=== PATIENT | female | born 1965 | race Hispanic/Latino ===

== ENCOUNTER 2022-04-25 10:15 | Emergency (ER) | payer BC ==
[2022-04-25 11:03] LABS: Absolute Lymphocytes (CBC) 0.5 K/uL (0.7-4.9); Hematocrit 38.5 % (36.0-45.0); Lymphocytes % 6.3 % (15.3-44.8); MPV 8.3 fL (7.6-11.3); RBC Red Blood Cell Count 4.34 M/uL (3.86-4.86)
--- NOTE | 2022-04-25 11:35 | RAD REPORT ---
EXAM DESCRIPTION: RAD - Chest Single View - 04/25/2022 11:22 am CLINICAL HISTORY: CHEST PAIN Chest pain. COMPARISON: Chest Pa And Lat (2 Views) dated 12/01/2017; CHEST SINGLE VIEW dated 10/17/2011; CHEST PA AND LAT 2 VIEW dated 11/22/2007; CHEST PA AND LAT 2 VIEW dated 09/18/2005 FINDINGS: Portable technique limits examination quality. The lungs are grossly clear. The heart is normal in size. No displaced fractures. IMPRESSION: No acute intrathoracic process suspected.
[2022-04-25 11:41] LABS: BUN Blood Urea Nitrogen 19 mg/dL (7-18); Bicarbonate 23 mmol/L (21-32); Glomerular Filtration Rate 101 ml/min (=/>90); Glucose Level 111 mg/dL (74-106); Sodium Level 135 mmol/L (136-145)
[2022-04-25 11:43] LABS: Potassium 3.8 mmol/L (3.5-5.1); Troponin High Sensitivity < 3.0 pg/mL (<58.9)
[2022-04-25] MEDS ORDERED: MORPHINE 4 MG/ML SYR ONE (14:07)
[2022-04-25] MEDS ORDERED: ONDANSETRON 4 MG/2 ML VIAL ONE (14:07)
--- NOTE | 2022-04-25 16:22 | EDPHYS ---
Physician Documentation [facility] Name: Erlinda Hernandez Age: 56 yrs Sex: Female : 1965 Arrival Date: 04/25/2022 Time: 10:16 Bed 4 Private MD: ED Physician Dominic De Dios HPI: 04/25 11:38 This 56 yrs old Female presents to ER via EMS with complaints of Chest Pain. rn 11:38 The patient or guardian reports chest pain that is located primarily in the substernal rn area. Onset: this morning. The pain does not radiate. Associated signs and symptoms: Pertinent positives: dizziness, lightheadedness, shortness of breath, Pertinent negatives: abdominal pain, cough. The chest pain is described as aching, a pressure. Duration: The patient or guardian reports a single episode, that is still ongoing. Modifying factors: The symptoms are alleviated by nothing. the symptoms are aggravated by nothing. Severity of pain: At its worst the pain was moderate in the emergency department the pain has improved. The patient has not experienced similar symptoms in the past. The patient has not recently seen a physician. Pt reports "felt bad" this AM, with dizziness, went to work and began to feel chest pain, substernal, pressure, non-radiating, assoc with sob. No fever or chills. Reports legs "fell wobbly". No syncope. No famhx of cardiac problems at her age. Reports nausea and vomiting x 1. . Historical: - Allergies: 10:23 No Known Allergies; bp - Home Meds: 10:23 None [Active]; bp - PMHx: 10:23 Hypertensive disorder; bp - Immunization history:: Adult Immunizations up to date. - Social history:: Smoking status: Patient denies any tobacco usage or history of. - Family history:: not pertinent. - Hospitalizations: : No recent hospitalization is reported. ROS: 11:38 Constitutional: Negative for fever, chills, and weight loss, Eyes: Negative for injury, rn pain, redness, and discharge, Neck: Negative for injury, pain, and swelling, Cardiovascular: Negative for palpitations, and edema, Respiratory: Negative for shortness of breath, cough, wheezing, and pleuritic chest pain, Abdomen/GI: Negative for abdominal pain,diarrhea, and constipation, Back: Negative for injury and pain, MS/Extremity: Negative for injury and deformity, Skin: Negative for injury, rash, and discoloration, Neuro: Negative for headache, weakness, numbness, tingling, and seizure. Exam: 11:38 Constitutional: This is a well developed, well nourished patient who is awake, alert, rn and in no acute distress. Head/Face: Normocephalic, atraumatic. Eyes: Pupils equal round and reactive to light, extra-ocular motions intact. Lids and lashes normal. Conjunctiva and sclera are non-icteric and not injected. Cornea within normal limits. Periorbital areas with no swelling, redness, or edema. Cardiovascular: Regular rate and rhythm. No pulse deficits. Respiratory: No increased work of breathing, no retractions or nasal flaring. Abdomen/GI: Soft, non-tender Skin: Warm, dry MS/ Extremity: Pulses equal, no cyanosis. Neurovascular intact. Full, normal range of motion. Equal circumference. Neuro: Awake and alert, GCS 15 Vital Signs: 10:22 BP 120 / 84; Pulse 82; Resp 16; Temp 98.2; Pulse Ox 97% ; bp 10:42 BP 130 / 78; Pulse 84; Resp 16; Pulse Ox 97% ; bp 12:09 BP 123 / 66; Pulse 98; Resp 17; Pulse Ox 98% ; bp 13:00 BP 110 / 60; Pulse 72; Resp 16; Pulse Ox 97% ; bp 14:00 BP 114 / 70; Pulse 77; Resp 19; Pulse Ox 97% ; bp 15:00 BP 120 / 75; Pulse 77; Resp 18; Pulse Ox 95% ; bp 16:00 BP 123 / 74; Pulse 79; Resp 18; Pulse Ox 96% ; bp MDM: 10:37 Patient medically screened. rn 13:33 ED course: COVID never sent, still pending.. rn 16:20 Differential diagnosis: acute myocardial infarction, acute pericarditis, anxiety, rn coronary artery disease cholecystitis, Cholelithiasis costochondritis, esophagitis, gastritis, gastroesophageal reflux disease (GERD), pericarditis, pleurisy, pneumothorax, pulmonary embolus, stable angina. Data reviewed: vital signs, nurses notes, lab test result(s), EKG, radiologic studies, and as a result, I will discharge patient. Counseling: I had a detailed discussion with the patient and/or guardian regarding: the historical points, exam findings, and any diagnostic results supporting the discharge/admit diagnosis, lab results, radiology results, the need for outpatient follow up, to return to the emergency department if symptoms worsen or persist or if there are any questions or concerns that arise at home. Response to treatment: the patient's symptoms have markedly improved after treatment, and as a result, I will discharge patient. Special discussion: Based on the patient's history, exam, and Dx evaluation, there is no indication for emergent intervention or inpatient Tx. It is understood by the patient/guardian that if the Sx's persist or worsen they need to return immediately for re-evaluation. ED course: No acute findings in evaluation here. D-dimer neg. Trop neg x 2. No ischemia on ECG. Stable vitals. Pt wants to go home, still pending COVID result, will dc home per her wishes and call her with results. . 04/25 10:22 Order name: Basic Metabolic Panel; Complete Time: 12:03 bp 04/25 10:22 Order name: CBC with Diff; Complete Time: 11:37 bp 04/25 10:22 Order name: Troponin HS; Complete Time: 12:03 bp 04/25 10:45 Order name: SARS-COV-2 RT PCR (Document "Date of Onset" if Symptomatic); Complete Time: rn 16:25 04/25 10:45 Order name: D-Dimer; Complete Time: 15:21 rn 04/25 13:23 Order name: Troponin High Sensitivity; Complete Time: 14:26 rn 04/25 10:22 Order name: XRAY Chest (1 view); Complete Time: 11:37 bp 04/25 10:22 Order name: EKG; Complete Time: 10:22 bp 04/25 10:22 Order name: Cardiac monitoring; Complete Time: 10:42 bp 04/25 10:22 Order name: EKG - Nurse/Tech; Complete Time: 10:42 bp 04/25 10:22 Order name: IV Saline Lock; Complete Time: 10:42 bp 04/25 13:23 Order name: EKG; Complete Time: 13:24 rn 04/25 10:22 Order name: Labs collected and sent; Complete Time: 10:42 bp 04/25 10:22 Order name: O2 Per Protocol; Complete Time: 10:42 bp 04/25 10:22 Order name: O2 Sat Monitoring; Complete Time: 10:42 bp 04/25 13:23 Order name: EKG - Nurse/Tech; Complete Time: 15:45 rn Administered Medications: 14:00 Drug: morphine 4 mg Route: IVP; Infused Over: 4 mins; Site: left antecubital; bp 16:59 Follow up: Response: No adverse reaction bp 14:00 Drug: Zofran (Ondansetron) 4 mg Route: IVP; Site: left antecubital; bp 16:59 Follow up: Response: No adverse reaction bp Disposition Summary: 04/25/22 16:21 Discharge Ordered Location: Home rn Problem: new rn Symptoms: have improved rn Condition: Stable rn Diagnosis - Chest pain, unspecified rn Followup: rn - With: Private Physician - When: As needed - Reason: Recheck today's complaints, Re-evaluation by your physician Discharge Instructions: - Discharge Summary Sheet rn - Nonspecific Chest Pain, Adult rn - Pain Without a Known Cause rn Forms: - Medication Reconciliation Form rn - Thank You Letter rn - Antibiotic rn medical surgical - Prescription Opioid Use rn - Work release form eb Signatures: Dispatcher [employer] Dominic Bowen MD MD rn Peltier, Brian, RN RN bp
--- NOTE | 2022-04-25 16:22 | ER ---
Nurse's Notes [facility] Name: Erlinda Hernandez Age: 56 yrs Sex: Female : 1965 Arrival Date: 04/25/2022 Time: 10:16 Bed 4 Private MD: Diagnosis: Chest pain, unspecified Presentation: 04/25 10:22 Chief complaint: EMS states: SUBSTERNAL CHEST PAIN 04/11 SINCE 729. Coronavirus screen: bp At this time, the client does not indicate any symptoms associated with coronavirus-19. Ebola Screen: No symptoms or risks identified at this time. Initial Sepsis Screen: Does the patient meet any 2 criteria? No. Patient's initial sepsis screen is negative. Does the patient have a suspected source of infection? No. Patient's initial sepsis screen is negative. Risk Assessment: Do you want to hurt yourself or someone else? Patient reports no desire to harm self or others. Onset of symptoms was April 25, 2022 at 07:30. Care prior to arrival: Medication(s) given: ASA, 81 mg, x 4, IV initiated. 20 GA, in the right antecubital area, Glucose check: 126. 10:22 Method Of Arrival: EMS: [facility] bp 10:22 Acuity: BOBBI 3 bp Triage Assessment: 10:22 General: Appears distressed, uncomfortable, Behavior is cooperative, appropriate for bp age, anxious. Pain: Complains of pain in chest. EENT: No deficits noted. Neuro: No deficits noted. Cardiovascular: Rhythm is sinus rhythm. Respiratory: No deficits noted. GI: No signs and/or symptoms were reported involving the gastrointestinal system. : No signs and/or symptoms were reported regarding the genitourinary system. Derm: No deficits noted. Musculoskeletal: No deficits noted. Historical: - Allergies: 10:23 No Known Allergies; bp - Home Meds: 10:23 None [Active]; bp - PMHx: 10:23 Hypertensive disorder; bp - Immunization history:: Adult Immunizations up to date. - Social history:: Smoking status: Patient denies any tobacco usage or history of. - Family history:: not pertinent. - Hospitalizations: : No recent hospitalization is reported. Screenin:22 Abuse screen: Denies threats or abuse. Denies injuries from another. Nutritional bp screening: No deficits noted. Tuberculosis screening: No symptoms or risk factors identified. Fall Risk None identified. Assessment: 10:22 General: SEE TRIAGE NOTE. bp 12:10 Reassessment: No changes from previously documented assessment. Patient and/or family bp updated on plan of care and expected duration. Pain level reassessed. 14:00 Reassessment: Patient appears in no apparent distress at this time. Patient and/or bp family updated on plan of care and expected duration. Pain level reassessed. Patient states symptoms have improved. 15:00 Reassessment: No changes from previously documented assessment. Patient and/or family bp updated on plan of care and expected duration. Pain level reassessed. 16:57 Reassessment: PT D/C HOME AMBULATORY WITH FAMILY, DX WITH NONCARDIAC CHEST PAIN. bp Vital Signs: 10:22 BP 120 / 84; Pulse 82; Resp 16; Temp 98.2; Pulse Ox 97% ; bp 10:42 BP 130 / 78; Pulse 84; Resp 16; Pulse Ox 97% ; bp 12:09 BP 123 / 66; Pulse 98; Resp 17; Pulse Ox 98% ; bp 13:00 BP 110 / 60; Pulse 72; Resp 16; Pulse Ox 97% ; bp 14:00 BP 114 / 70; Pulse 77; Resp 19; Pulse Ox 97% ; bp 15:00 BP 120 / 75; Pulse 77; Resp 18; Pulse Ox 95% ; bp 16:00 BP 123 / 74; Pulse 79; Resp 18; Pulse Ox 96% ; bp ED Course: 10:16 Patient arrived in ED. cl3 10:21 Jamarcus Mendieta, [place] is Primary Nurse. bp 10:22 Dominic De Dios MD is Attending Physician. eb 10:22 Maintain EMS IV. Dressing intact. Good blood return noted. Site clean \T\ dry. Gauge \T\ bp site: 20 LEFT AC. 10:22 Arm band placed on. bp 10:22 Patient has correct armband on for positive identification. Client placed on continuous bp cardiac and pulse oximetry monitoring. NIBP monitoring applied. 10:23 Triage completed. bp 11:24 XRAY Chest (1 view) In Process Unspecified. EDMS 15:00 EKG done, by ED staff, reviewed by Dominic De Dios MD. mb7 16:57 No provider procedures requiring assistance completed. IV discontinued, intact, bp bleeding controlled, No redness/swelling at site. Pressure dressing applied. Patient maintains SpO2 saturation greater than 95% on room air. Administered Medications: 14:00 Drug: morphine 4 mg Route: IVP; Infused Over: 4 mins; Site: left antecubital; bp 16:59 Follow up: Response: No adverse reaction bp 14:00 Drug: Zofran (Ondansetron) 4 mg Route: IVP; Site: left antecubital; bp 16:59 Follow up: Response: No adverse reaction bp Medication: 15:00 VIS not applicable for this client. bp Outcome: 16:21 Discharge ordered by . rn 16:57 Discharged to home ambulatory, with family. bp 16:57 Condition: stable 16:57 Discharge instructions given to patient, Instructed on discharge instructions, follow up and referral plans. Demonstrated understanding of instructions, follow-up care. 17:00 Patient left the ED. bp Signatures: Dispatcher [employer] EDMS Dominic De Dios MD MD rn Peltier, Brian, RN RN bp Botello, Elizabeth eb Lewis, Charde 3 Heidy Cuello 7
[2022-04-25 17:16] VITALS: TEMP 98.2
[2022-04-25 17:28] VITALS: BP 123/74; O2SAT 96
--- NOTE | 2022-04-26 17:29 | EKG ---
Test Date: 2022-04-25 Test Time: 14:44:28 Party Plan Sales Director: MB MEASUREMENT RESULTS: Intervals: Rate: 77 NH: 156 QRSD: 94 QT: 382 QTc: 432 Lutz: P: 31 NH: 156 QRS: 9 T: 0 INTERPRETIVE STATEMENTS: Normal sinus rhythm Minimal voltage criteria for LVH, may be normal variant Cannot rule out Anterior infarct, age undetermined Abnormal ECG Compared to ECG 04/25/2022 10:34:17 Myocardial infarct finding now present ST (T wave) deviation no longer present Electronically Signed On 04-26-22 17:27:20 CDT by Hilario Coreas
--- NOTE | 2022-04-26 17:29 | EKG ---
Test Date: 2022-04-25 Test Time: 10:34:17 Quality Head: BP MEASUREMENT RESULTS: Intervals: Rate: 80 NV: 152 QRSD: 84 QT: 378 QTc: 435 Stanley: P: 32 NV: 152 QRS: 3 T: -3 INTERPRETIVE STATEMENTS: Normal sinus rhythm Moderate voltage criteria for LVH, may be normal variant Nonspecific ST and T wave abnormality Abnormal ECG Compared to ECG 10/17/2011 18:54:10 Left ventricular hypertrophy now present ST (T wave) deviation now present Sinus bradycardia no longer present Electronically Signed On 04-26-22 17:28:01 CDT by Hilario Coreas
== END 2022-04-25 17:00 | disposition home or self-care (01) ==
LOC: ER 10:15
DX: R07.9 Chest pain, unspecified (principal); Z20.822 Contact with and (suspected) exposure to COVID-19; I10 Essential (primary) hypertension
CPT/HCPCS: 93005 ×2; 85025; 80048; 36415; 85379; 84484 ×2; 71045; 96375; 96374; 99285; U0003; J2405

== ENCOUNTER 2025-08-03 12:01 | Emergency (ER) | payer BC ==
--- OUTSIDE RECORDS SUMMARY | 2025-08-03 12:07 | XMS REPORT | Continuity of Care Document ---
Author Name Unknown Address [address] [place] [address] [address] [place], [place] [id number] [place] [address] Address [address] [facility] 1 [address] [place] [address] Care Team Providers Care Radar Signal Processing Engineer Name Role Phone Unavailable Unavailable Unavailable Results Test Description Test Time Test Comments Results Result Co mments Source HEPATITIS A [id number] 02:47:40* Test Item Value Reference Range Interpretation Comme nts HEPATITIS A IgM (test code = 2728) NON-REACTIVE NON-REACTIVE UNLESS OTHERW ISE INDICATED, ALL TESTING PERFORMED AT [facility] [address] [place] [address] TEACHER INDUSTRIAL ARTS: JAZZMINE VERONICA M.D. CLIA NUMBER [id number] [facility] [place] [place]. [id number] PAP TEST, THINPREP, [id number] 13:51:42* Test Item Value Reference Range Interpretation Comme nts SOURCE: (test code = 8001) Cervical/Endo cervical SLIDES: (test code = 8011) 1 LMP: (test code = 8021) NOT GIVEN SPECIMEN ADEQUACY: (test code = 79003) (NOTE) Satisfactory for evaluation. Endocervical cells/transformation zone component present. INTERPRETATION: (test code = 55490) NILM/NO EPITH. ABNORMALITY;S EE BELOW ---- NEGATIVE FOR INTRAEPITHELIAL LESION OR MALIGNANCY (NILM) - OTHER COMMENTS: (test code = 8081) (NOTE) Atrophic changes present. NAVAL AIRCREWMAN OPERATOR: (test code = 8101) TANYA Joyner(ASCP) IAC LOCATION: (test code = 29199) (NOTE) Specimens proces sed and interpreted at [facility], [address] [place] [address], , CLIA: [id number] CPT: (test code = 8140) (NOTE) [address] UNLESS OTH ERWISE INDICATED, COMPUTER AIDED AND NAVAL AIRCREW[employer] OPERATOR SCREENING PERFORMED. The Pap test is a screening test with an inherent, but low probability of error. Your patient should be reminded to consult you immediately if she experiences any suspicious signs or symptoms, regardless of her Pap test result. An alternate report format containing images or consolidated prior Pap history is available as applicable. HPV HIGH RISK WITH GENOTYPE, [id number] 13:45:26* Test Item Value Reference Range Interpretation Comme nts HPV HIGH RISK INTERP (test code = 23357) NEGATIVE NEGATIVE HPV 16 (test code = 70582) NEGATIVE HPV 18 (test code = 02827) NEGATIVE HPV, HR, OTHER GENOTYPES (test code = 65111) NEGATIVE Testing methodol ogy is real-time PCR utilizing hydrolysis probes with the Sne[employer] Carol Ann 4800 system. The test individually detects genotypes 16 and 18, as well as the other 12 high risk types (31,33,35,39,45,51,52,56 ,58,59,66,68). The expected result is negative. A negative result does not rule out the presence of HPV not included in the genotype set, a low level of infection or specimen sampling error. UNLESS OTHERWISE INDICATED, ALL TESTING PERFORMED AT [facility] [address] [place] [address] TEACHER [employer]USTRIAL [employer]S: JAZZMINE VERONICA M.D. CLIA NUMBER [id number] [facility] [place] [place]. [id number] LIPID [id number] 04:45:16* Test Item Value Reference Range Interpretation Comme nts CHOLESTEROL (test code = 2210) 299 MG/DL <200 H TRIGLYCERIDES (test code = 2232) 185 MG/DL <150 H HDL CHOLESTEROL (test code = 2219) 90 MG/DL >39 CALC LDL CHOL (test code = 2236) 175 MG/DL <100 H NOTE: CALCULATED LDL IS BASED ON TREY-LARRY METHOD WHICHINCLUDES ADJUSTABLE TRIGLYCERIDE:VLDL CHOLESTEROL RATIO.THIS FACTOR VARIES BY MEASURED TRIGLYCERIDE AND NON-HDLCHOLESTEROL CONCENTRATIONS WITH INCREASED CALCULATED LDL SEENIN HIGHER TRIGLYCERIDE OR LOWER NON-HDL SPECIMENS. FOR MOREINFORMATION, SEE CLIENT ANNOUNCEMENT AT [email or web address] [email or web address] RATIO LDL/HDL (test code = 2237) 1.94 RATIO <3.22 COMPREHENSIVE METABOLIC [id number] 04:45:16* Test Item Value Reference Range Interpretation Comme nts GLUCOSE (test code = 2216) 119 MG/DL 70-99 H BUN (test code = 2207) 20 MG/DL 8-23 CREATININE (test code = 221) 0.62 MG/DL 0.60-1.30 eGFR (2020 CKD-EPI) (test code = 18510) 102 ML/MIN/1.73 >60 CALC BUN/CREAT (test code = 2235) 32 RATIO 6-28 H SODIUM (test code = 223) 141 MEQ/L 133-146 POTASSIUM (test code = 2228) 4.3 MEQ/L 3.5-5.4 CHLORIDE (test code = 2215) 103 MEQ/L 95-107 CARBON DIOXIDE (test code = 2206) 24 MEQ/L 19-31 CALCIUM (test code = 220) 9.9 MG/DL 8.5-10.5 PROTEIN, TOTAL (test code = 2228) 7.6 G/DL 6.1-8.3 ALBUMIN (test code = 2200) 5.1 G/DL 3.5-5.2 CALC GLOBULIN (test code = 2240) 2.5 G/DL 1.9-3.7 CALC A/G RATIO (test code = 2233) 2.0 RATIO 1.0-2.6 BILIRUBIN, TOTAL (test code = 2206) 0.5 MG/DL See_Comment [Automated me ssage] The system which generated this result transmitted reference range: <=1.2. The reference range was not used to interpret this result as normal/abnormal. ALKALINE PHOSPHATASE (test code = 2203) 67 U/L 40-136 AST (test code = 2218) 17 U/L 9-40 ALT (test code = 2219) 18 U/L 5-40 UNLESS OTHERWISE INDICATED, ALL TESTING PERFORMED AT [facility] [address] [place] [address] TEACHER INDUSTRIAL ARTS: JAZZMINE VERONICA M.D. CLIA NUMBER [id number] [place]. [id number] HEMOGLOBIN [id number] 03:48:11* Test Item Value Reference Range Interpretation Comme nts HEMOGLOBIN A1c (test code = 88468) 6.1 % 4.2-5.6 H [employer] GUIDELINES FOR HGB A1C: PREDIABETES/INCREASED RISK . . . . . . . 5.7-6.4% DIAGNOSIS OF DIABETES . . . . . . . . . >=6.5% WITH CONFIRMATION OR APPROPRIATE SYMPTOMS NOTE: ASSAY MAY BE AFFECTED BY HEMOGLOBINOPATHIES (SICKLE CELL ANEMIA, S-C DISEASE, OTHERS) OR ARTIFICIALLY LOWERED BY DECREASED RED CELL SURVIVAL (HEMOLYTIC ANEMIAS, BLOOD LOSS, ETC.). CONSIDER ALTERNATE TESTING OR LABORATORY CONSULTATION. OCCULT BLD,FECAL,IMMUNOASSAY [id number] 14:20:35* Test Item Value Reference Range Interpretation Comme nts OCCULT BLD, FECAL (test code = 71217) NEGATIVE NEGATIVE [facility] has important pathology staff changes effective 12/31/2022. New pathology staff will provide uninterrupted, excellent patient care and clinical consultation. See URL: [email or web address]. UNLESS OTHERWISE INDICATED, ALL TESTING PERFORMED AT [facility] [address] [place] [address] TEACHER INDUSTRIAL ARTS: LARISA MELENDEZ M.D. CLIA NUMBER [id number] [place] [id number] COMPREHENSIVE METABOLIC [id number] 04:19:21* Test Item Value Reference Range Interpretation Comme nts GLUCOSE (test code = 2217) 99 MG/DL 70-99 BUN (test code = 2208) 18 MG/DL 6-20 CREATININE (test code = 2214) 0.63 MG/DL 0.60-1.30 eGFR (2020 CKD-EPI) (test code = 38198) 102 ML/MIN/1.73 >60 CALC BUN/CREAT (test code = 2235) 29 RATIO 6-28 H SODIUM (test code = 2231) 140 MEQ/L 133-146 POTASSIUM (test code = 2227) 4.1 MEQ/L 3.5-5.4 CHLORIDE (test code = 5) 103 MEQ/L 95-107 CARBON DIOXIDE (test code = 2205) 21 MEQ/L 19-31 CALCIUM (test code = 2208) 9.9 MG/DL 8.5-10.5 PROTEIN, TOTAL (test code = 2228) 7.3 G/DL 6.1-8.3 ALBUMIN (test code = 2200) 4.9 G/DL 3.5-5.2 CALC GLOBULIN (test code = 2239) 2.4 G/DL 1.9-3.7 CALC A/G RATIO (test code = 2233) 2.0 RATIO 1.0-2.6 BILIRUBIN, TOTAL (test code = 2206) 0.4 MG/DL See_Comment [Automated me ssage] The system which generated this result transmitted reference range: <=1.2. The reference range was not used to interpret this result as normal/abnormal. ALKALINE PHOSPHATASE (test code = 2203) 66 U/L 40-136 AST (test code = 2217) 20 U/L 9-40 ALT (test code = 2218) 14 U/L 5-40 LIPID [id number] 04:19:21* Test Item Value Reference Range Interpretation Comme nts CHOLESTEROL (test code = 221) 247 MG/DL <200 H TRIGLYCERIDES (test code = 2) 116 MG/DL <150 HDL CHOLESTEROL (test code = 2219) 94 MG/DL >39 CALC LDL CHOL (test code = 2236) 131 MG/DL <100 H NOTE: CALCULATED LDL IS BASED ON TREY-LARRY METHOD WHICHINCLUDES ADJUSTABLE TRIGLYCERIDE:VLDL CHOLESTEROL RATIO.THIS FACTOR VARIES BY MEASURED TRIGLYCERIDE AND NON-HDLCHOLESTEROL CONCENTRATIONS WITH INCREASED CALCULATED LDL SEENIN HIGHER TRIGLYCERIDE OR LOWER NON-HDL SPECIMENS. FOR MOREINFORMATION, SEE CLIENT ANNOUNCEMENT AT [email or web address] [email or web address] RATIO LDL/HDL (test code = 223) 1.39 RATIO <3.22 TSH, THIRD [id number] 03:38:20* Test Item Value Reference Range Interpretation Comme nts TSH, THIRD GENERATION (test code = 2821) 1.790 UIU/ML 0.400-4.100 FREE T4 (THYROXINE)2022-12-15 03:38:20* Test Item Value Reference Range Interpretation Comme nts FREE T4 (THYROXINE) (test code = 2823) 1.29 NG/DL 0.80-1.90 [facility] has i mportant pathology staff changes effective 12/31/2022. New pathology staff will provide uninterrupted, excellent patient care and clinical consultation. See URL: [email or web address]. UNLESS OTHERWISE INDICATED, ALL TESTING PERFORMED AT [facility] [address] [place] [address] CLIA: [id number], CAP: [id number] HEMOGLOBIN [id number] 03:37:17* Test Item Value Reference Range Interpretation Comme nts HEMOGLOBIN A1c (test code = 52837) 6.0 % 4.2-5.6 H CBC W/AUTO DIFF WITH [id number] 03:23:10* Test Item Value Reference Range Interpretation Comme nts WBC (test code = 1001) 3.9 K/UL 3.5-11.0 RBC (test code = 1002) 4.61 M/UL 3.80-5.40 HEMOGLOBIN (test code = 1003) 13.4 G/DL 11.5-15.5 HEMATOCRIT (test code = 1004) 39.7 % 34.0-45.0 MCV (test code = 1005) 86.1 fL 80.0-99.0 MCH (test code = 1006) 29.1 PG 25.0-33.0 MCHC (test code = 1007) 33.8 G/DL 31.0-36.0 RDW (test code = 1038) 13.4 % 11.5-15.0 NEUTROPHILS (test code = 1008) 45.8 % LYMPHOCYTES (test code = 1010) 39.4 % MONOCYTES (test code = 1011) 7.1 % EOSINOPHILS (test code = 1012) 6.9 % BASOPHILS (test code = 1013) 0.8 % IMMATURE GRANULOCYTES (test code = 1036) 0.0 % NUCLEATED RBCS (test code = 1065) 0.0 /100 WBC'S See_Comment [Automated Vanksena ge] The system which generated this result transmitted reference range: 0.0. The reference range was not used to interpret this result as normal/abnormal. PLATELET COUNT (test code = 1015) 342 K/UL 130-400 ABSOLUTE NEUTROPHILS (test code = 1066) 1.80 K/UL 1.50-7.50 ABSOLUTE LYMPHOCYTES (test code = 1067) 1.55 K/UL 1.00-4.00 ABSOLUTE MONOCYTES (test code = 1068) 0.28 K/UL 0.20-1.00 ABSOLUTE EOSINOPHILS (test code = 1040) 0.27 K/UL 0.00-0.50 ABSOLUTE BASOPHILS (test code = 1069) 0.03 K/UL 0.00-0.20 ABS IMMATURE GRANULOCYTES (test code = 1020) 0.00 K/UL 0.00-0.10 ABS NUCLEATED RBCS (test code = 22209) 0.00 K/UL 0.00-0.11
--- NOTE | 2025-08-03 13:02 | RAD REPORT ---
EXAMINATION: TWO VIEW CHEST XR CLINICAL INDICATION: SOB TECHNIQUE: 2 views of the chest was performed. COMPARISON: 04/25/2022 FINDINGS: The lungs are well inflated and clear. The heart is upper limit of normal in size. No displaced fract ures evident. Small hiatal hernia. IMPRESSION: No acute or significant abnormalities.
[2025-08-03 15:16] LABS: Absolute Lymphocytes (CBC) 1.6 K/uL (0.7-4.9); Hematocrit 41.0 % (36.0-45.0); Hemoglobin 13.8 g/dL (12.0-15.0); MCH 29.9 pg (27.0-35.0); MCHC 33.6 g/dL (32.0-36.0); MCV 89.1 fL (80-100); MPV 7.9 fL (7.6-11.3); Nucleated RBC Absolute Count 0.0 (0-0); Nucleated Red Blood Cells % 0.1 % (0-0); RBC Red Blood Cell Count 4.60 M/uL (3.86-4.86); White Blood Count 4.30 thou/uL (4.3-10.9)
[2025-08-03 15:31] LABS: Anion Gap 9.5 mEq/L (5.0-15.0); BUN Blood Urea Nitrogen 15.0 mg/dL (7-18); Glucose Level 106.0 mg/dL (74-106); Potassium 3.5 mEq/L (3.5-5.1)
[2025-08-03 15:41] LABS: PT Prothrombin Time 12.3 SECONDS (10-13.0); PTT, Activated Partial Thromb 35.5 SECONDS (27.2-37.4); Protime INR 1.09
--- NOTE | 2025-08-03 16:23 | RAD REPORT ---
EXAM: Soft Tissue Neck W/Contr INDICATION: possible steak impaction esophagus Sagittal and coronal reformations were generated. This exam was performed according to our department al dose-optimization program, which includes automated exposure control, adjustment of the mA and/or kV according to patient size and/or use of iterative reconstruction technique. IV contrast was administered. COMPARISON: None. FINDINGS: Mucosal spaces: Nasopharynx, oropharynx, oral cavity, larynx and hypopharynx are normal. No suspiciou s masses are identified. Epiglottis is normal in configuration. True vocal cords cords are normally situated. Piriform sinuses are well-aerated. Lymph Nodes: No gross pathologic appearing cervical lymph nodes. Salivary Glands: Unremarkable. Thyroid Gland: Normal Included Intracranial Structures: Grossly unremarkable. Included Orbits: Normal Paranasal Sinuses: Predominantly clear Tympanomastoid Cavities: Normal Vascular Structures: Normal Osseous Structures: No acute osseous abnormality. Included Lung Apices: Normal IMPRESSION: No acute or pathologic process identified.
--- NOTE | 2025-08-03 16:25 | RAD REPORT ---
EXAM: CT CHEST WITH CONTRAST CLINICAL INDICATION: foreign body sensation, difficulty swallowing TECHNIQUE: Routine CT scan of the chest with intravenous contrast. One or more of the following dose reduction techniques were used: Automated exposure control, adjustment of the mA and/or kV according to patient size, and/or iterative reconstruction. Unless otherwise specified, incidental fi ndings do not require dedicated imaging follow-up. COMPARISON: No prior exam. FINDINGS: LUNGS: Airways are clear. No evidence of airspace or interstitial process. No nodules. PLEURA: No pleural effusion. No pneumothorax. MEDIASTINUM AND LYMPH NODES: No mediastinal mass or fluid collection. Normal size mediastinal, hilar, and axillary lymph nodes. Mild esophageal thickening. OSSEOUS STRUCTURES AND CHEST WALL: Intact. UPPER ABDOMEN: No significant abnormalities. IMPRESSION: No acute intrathoracic findings. Mild thickening of the esophagus may benefit from nonemergent follow-up endoscopy.
--- NOTE | 2025-08-03 17:32 | EDPHYS ---
Physician Documentation [facility] Name: Erlinda Hernandez Age: 60 yrs Sex: Female : 1965 Arrival Date: 08/03/2025 Time: 12:01 Bed 8 Private MD: ED Physician Dominic De Dios HPI: 08/03 15:23 This 60 yrs old Female presents to ER via Ambulatory with complaints of rn Shortness Of Breath, Headache, Difficulty Swallowing. 15:23 Patient reports has difficulty swallowing for the last 2 months. Patient states rn sometimes feels like food gets stuck but eventually passes. Last night was eating steak and has been having trouble swallowing since then. Was able to sleep last night but woke up this morning with a tightness in her chest and feeling like something was stuck. Tried to drink water and water came back up. Tried to drink Gatorade just prior to triage and feels like vomiting but does not actually throw up.. Historical: - Allergies: 13:39 No Known Allergies; dd2 - PMHx: 13:39 Hypertensive disorder; dd2 - PSHx: 13:39 None; dd2 - Immunization history:: Adult Immunizations up to date. - Infectious Disease History:: Denies. - Social history:: Smoking status: Patient reports the use of cigarette tobacco products, smokes .25 packs per day. - Family history:: not pertinent. - Hospitalizations: : No recent hospitalization is reported. ROS: 15:23 Constitutional: Negative for fever, chills, and weight loss, Neck: Positive for feeling rn of something stuck in neck Cardiovascular: Negative for chest pain, palpitations, and edema, Respiratory: Negative for shortness of breath, cough, wheezing, and pleuritic chest pain, Abdomen/GI: Negative for abdominal pain, nausea, vomiting, diarrhea, and constipation, MS/Extremity: Negative for injury and deformity, Skin: Negative for injury, rash, and discoloration, Neuro: Negative for headache, weakness, numbness, tingling, and seizure, Exam: 15:23 Constitutional: This is a well developed, well nourished patient who is awake, alert, rn and in no acute distress. Cardiovascular: Regular rate and rhythm. No pulse deficits. Respiratory: No increased work of breathing, no retractions or nasal flaring. Neuro: Awake and alert, GCS 15 Vital Signs: 13:33 BP 125 / 86; Pulse 79; Resp 16; Temp 98.2; Pulse Ox 97% on R/A; Weight 72.57 kg; Pain dd2 9/10; 17:22 BP 122 / 72; Pulse 72; Resp 18; Pulse Ox 100% ; mb9 13:33 Pain Scale: Adult dd2 MDM: 12:06 Medical Screening Exam initiated rn 17:28 Differential diagnosis: Esophageal food bolus or impaction, esophagitis, stricture. rn Data reviewed: vital signs, nurses notes, lab test result(s), radiologic studies, CT scan, plain films. Independent interpretation of the following test(s) in the Emergency Department X-Ray: My interpretation is Chest x-ray images negative for pneumothorax per my interpretation. CT Scan: My interpretation is CT chest images negative for foreign body per my interpretation. Counseling: I had a detailed discussion with the patient and/or guardian regarding the historical points, exam findings, and any diagnostic results supporting the discharge/admit diagnosis, lab results, radiology results, the need for outpatient follow up, to return to the emergency department if symptoms worsen or persist or if there are any questions or concerns that arise at home. Special discussion: I discussed with the patient/guardian in detail that at this point there is no indication for admission to the hospital. It is understood, however, that if the symptoms persist or worsen the patient needs to return immediately for re-evaluation. Based on the history and exam findings, there is no indication for further emergent testing or inpatient evaluation. I discussed with the patient/guardian the need to see the research editor for further evaluation of the symptoms. ED course: Upon waiting in ER possible esophageal bolus or food impaction has resolved. Able to now tolerate p.o. without vomiting. Recommend GI follow-up and will discharge with Protonix as possible esophagitis with possible tightening or stricture. I have personally reviewed all of the results, including but not limited to blood tests and imaging deemed necessary to safely discharge this patient at this time. All results given to and printed out for patient. I personally went over all the results with the patient and answered all questions. Patient will follow-up with PCP and or specialist as discussed. Return precautions given and understood.. 08/03 14:32 Order name: CBC with Diff; Complete Time: 15:42 rn 08/03 14:32 Order name: Basic Metabolic Panel; Complete Time: 15:42 rn 08/03 14:32 Order name: Protime (+inr); Complete Time: 15:42 rn 08/03 14:32 Order name: Ptt, Activated; Complete Time: 15:42 rn 08/03 12:06 Order name: XRAY Chest Pa And Lat (2 Views); Complete Time: 13:36 rn 08/03 14:32 Order name: CT Soft Tissue Neck W/contr; Complete Time: 16:36 rn 08/03 15:45 Order name: CT Chest W/ Con; Complete Time: 16:36 rn 08/03 14:32 Order name: IV Start; Complete Time: 15:35 rn Administered Medications: 17:21 Not Given (Physician Discretion): glucagon1 mg IVP once mb9 17:21 Not Given (Physician Discretion): magnesium sulfate1 grams IVPB once over 1 hrs mb9 Disposition Summary: 08/03/25 17:31 Discharge Ordered Notes: Location: Home rn Problem: new rn Symptoms: have improved rn Condition: Stable rn Diagnosis - Esophagitis, unspecified rn Followup: rn - With: Private Physician - When: As needed - Reason: Recheck today's complaints, Re-evaluation by your physician Discharge Instructions: - Discharge Summary Sheet rn - Dysphagia rn - Esophagitis rn Forms: - Medication Reconciliation Form rn - Antibiotic cardiothoracic icu rn - Prescription Opioid Use rn - Patient Portal Instructions rn - Leadership Thank You Letter rn Prescriptions: - Protonix 40 mg Oral Tablet - take 1 tablet ORAL route once daily; 30 tablet; Refills: 0, Product Selection rn Permitted Signatures: Dispatcher [employer] EDDominic Danielle MD MD rn Wilkerson, Mary Beth RN RN mb9 RAHEEM NEGRON RN RN dd2 Corrections: (The following items were deleted from the chart) 14:32 14:32 Soft Tissue Neck W/Contr+CT.RAD.BRZ ordered. EDMS EDMS 14:32 14:32 CBC+H.LAB.BRZ ordered. EDMS EDMS 14:32 14:32 BASIC METABOLIC PANEL+C.LAB.BRZ ordered. EDMS EDMS 14:32 14:32 PROTIME (+INR)+COAG.LAB.BRZ ordered. EDMS EDMS 14:32 14:32 PTT, ACTIVATED+COAG.LAB.BRZ ordered. EDMS EDMS 15:45 15:45 Thorax W/ Con+CT.RAD.BRZ ordered. EDMS EDMS 15:48 15:45 Thorax Wo Con+CT.RAD.BRZ ordered. EDMS EDMS
--- NOTE | 2025-08-03 17:32 | ER ---
Nurse's Notes [facility] Name: Erlinda Hernandez Age: 60 yrs Sex: Female : 1965 Arrival Date: 08/03/2025 Time: 12:01 Bed 8 Private MD: Diagnosis: Esophagitis, unspecified Presentation: 08/03 13:33 Chief complaint: Patient states: SINCE JUNE, FEELS LIKE EVERYTHING SHE EATS OR DRINKS dd2 GETS STUCK IN THE THROAT AD CAUSES CHEST TO FEEL FULL AND HEAVY. REPORTS BURPING HELPS BUT THE PAST 2 DAYS, THROAT FEELS TIGHT CONTINUOUSLY EVEN WHEN NOT EATING OR DRINKING AND HAVING A HEADACHE. Coronavirus screen: At this time, the client does not indicate any symptoms associated with coronavirus-19. Ebola Screen: No symptoms or risks identified at this time. Initial Sepsis Screen: Does the patient meet any 2 criteria? No. Patient's initial sepsis screen is negative. Does the patient have a suspected source of infection? No. Patient's initial sepsis screen is negative. Risk Assessment: Do you want to hurt yourself or someone else? Patient reports no desire to harm self or others. Onset of symptoms is unknown. 13:33 Method Of Arrival: Ambulatory dd2 13:33 Acuity: BOBBI 3 dd2 Triage Assessment: 13:39 General: Appears in no apparent distress. uncomfortable, Behavior is calm, cooperative, dd2 appropriate for age. Pain: Complains of pain in throat, HEAD. Neuro: Reports headache. Cardiovascular: Reports CHEST HEAVY. Respiratory: Reports THROAT TIGHT Airway is patent Respiratory effort is even, unlabored, Respiratory pattern is regular, symmetrical, Onset: The symptoms/episode began/occurred at an unknown time. the patient has mild shortness of breath. Historical: - Allergies: 13:39 No Known Allergies; dd2 - PMHx: 13:39 Hypertensive disorder; dd2 - PSHx: 13:39 None; dd2 - Immunization history:: Adult Immunizations up to date. - Infectious Disease History:: Denies. - Social history:: Smoking status: Patient reports the use of cigarette tobacco products, smokes .25 packs per day. - Family history:: not pertinent. - Hospitalizations: : No recent hospitalization is reported. Screenin:15 [facility] ED Fall Risk Assessment (Adult) History of falling in the last 3 months, mb9 including since admission No falls in past 3 months (0 pts) Confusion or Disorientation No (0 pts) Intoxicated or Sedated No (0 pts) Impaired Gait No (0 pts) Mobility Assist Device Used No (0 pt) Altered Elimination No (0 pt) Score/Fall Risk Level 0 - 2 = Low Risk Oriented to surroundings, Maintained a safe environment, Educated pt \T\ family on fall prevention, incl call for assistance when getting out of bed. Abuse screen: Denies threats or abuse. Nutritional screening: No deficits noted. Tuberculosis screening: No symptoms or risk factors identified. Assessment: 17:21 General: Appears in no apparent distress. Behavior is calm, cooperative. Pain: Denies mb9 pain. Neuro: No deficits noted. Cardiovascular: Patient's skin is warm and dry. Respiratory: Airway is patent Respiratory effort is even, unlabored, Respiratory pattern is regular, symmetrical. GI: No signs and/or symptoms were reported involving the gastrointestinal system. : No signs and/or symptoms were reported regarding the genitourinary system. EENT: Throat is clear Reports something stuck in throat. Derm: Skin is normal. Musculoskeletal: Range of motion: intact in all extremities. Vital Signs: 13:33 BP 125 / 86; Pulse 79; Resp 16; Temp 98.2; Pulse Ox 97% on R/A; Weight 72.57 kg; Pain dd2 910; 17:22 BP 122 / 72; Pulse 72; Resp 18; Pulse Ox 100% ; mb9 13:33 Pain Scale: Adult dd2 ED Course: 12:04 Patient arrived in ED. al6 12:06 Dominic De Dios MD is Attending Physician. rn 12:50 XRAY Chest Pa And Lat (2 Views) In Process Unspecified. EDMS 13:38 Triage completed. dd2 13:39 Arm band placed on left wrist. dd2 15:09 Radiology exam delayed due to lab results not completed at this time. (BUN/Creatinine) nj IV insertion attempt and/or patient not having appropriate IV at this time. 16:01 CT Soft Tissue Neck W/contr In Process Unspecified. EDMS 16:01 CT Chest W/ Con In Process Unspecified. EDMS 17:10 Heidy Patton, [place] is Primary Nurse. mb9 17:15 Bed in low position. Call light in reach. Side rails up X 1. Provided Education on: mb9 press call light if needing anything. Client placed on continuous cardiac and pulse oximetry monitoring. NIBP monitoring applied. 17:16 No provider procedures requiring assistance completed. mb9 17:40 IV discontinued, intact, bleeding controlled, No redness/swelling at site. Pressure mb9 dressing applied. Administered Medications: 17:21 Not Given (Physician Discretion): glucagon1 mg IVP once mb9 17:21 Not Given (Physician Discretion): magnesium sulfate1 grams IVPB once over 1 hrs mb9 Medication: 17:16 VIS not applicable for this client. mb9 Outcome: 17:31 Discharge ordered by . rn 17:40 Discharged to home ambulatory, mb9 17:40 Condition: stable 17:40 Discharge instructions given to patient, Instructed on discharge instructions, follow up and referral plans. Demonstrated understanding of instructions, follow-up care, medications, Prescriptions given X 1, 17:40 Patient left the ED. mb9 Signatures: Dispatcher [employer] EDMS Dominic De Dios MD MD rn Jordan, Nathan nj Wilkerson, Heidy Olivera RN RN mb9 RAHEEM NEGRON RN RN dd2 Jayne Coulter6
[2025-08-03 17:49] VITALS: TEMP 98.2
[2025-08-03 17:50] VITALS: BP 122/72; O2SAT 100
== END 2025-08-03 17:40 | disposition home or self-care (01) ==
LOC: ER 12:01
DX: K20.90 Esophagitis, unspecified without bleeding (principal); F17.210 Nicotine dependence, cigarettes, uncomplicated
CPT/HCPCS: 85025; 80048; 36415; 85610; 85730; 71260; 70491; 71046; 99283; Q9967